=== PATIENT | male | born 1985 | race Caucasian/White ===

== ENCOUNTER 2025-02-27 08:30 | Emergency (ER) | payer SELFPAY ==
[~2025-02-27] VITALS: Ht 172.7 cm; Wt 91.2 kg
[2025-02-27 09:47] LABS: BASO # 0.0 10^3/uL (0.0-0.2); BASO % 0.1 % (0.0-1.0); EOS # 0.0 10^3/uL (0.0-0.5); EOS % 0.1 % (0.0-3.0); LYMPH # 1.4 10^3/uL (1.5-5.0); LYMPH % 8.0 % (24.0-44.0); MONO # 1.3 10^3/uL (0.0-0.8); MONO % 7.2 % (2.0-8.0); NEUTROPHILS # 14.8 10^3/uL (1.5-8.5); NEUTROPHILS % 84.1 % (36.0-66.0); PLATELET COUNT, AUTOMATED 226 10^3/uL (150-450)
[2025-02-27] MEDS ORDERED: ISOVUE-370 76% 100 ML VIAL As Ordered ONE (09:49)
[2025-02-27 09:56] LABS: ERYTHROCYTE SEDIMENTATION RATE 13 mm/hr (0-15)
[2025-02-27] MEDS: AMPICILLIN SOD/SULBACTAM SOD 3 GM in DEXTROSE 5% (D5W) MINI-BAG PLU 100 ML IV ONE ×2 (10:38→15:58)
[2025-02-27] MEDS ORDERED: ACETAMINOPHEN *IV* 1,000 MG in IV 1 EA IV ONE (12:15)
[2025-02-27 16:35] VITALS: BP 131/76; TEMP 99; O2SAT 96
== END 2025-02-27 16:43 | disposition home or self-care (01) ==
LOC: M ED 09:18
DX: L02.412 Cutaneous abscess of left axilla (principal); F12.10 Cannabis abuse, uncomplicated
CPT/HCPCS: 70487; 80047; 83605; 85025; 85652; 86140; 87040; 96365; 96375; 99284; J0295; J1100; Q9967